=== PATIENT | male | born 2000 | race Two or more races ===

== ENCOUNTER 2024-01-18 13:28 | Emergency (ER) | payer OTHER ==
[~2024-01-18] VITALS: Ht 170.2 cm; Wt 74.8 kg
[2024-01-18 16:49] LABS: HEMATOCRIT 44.5 % (39.0-48.0); HEMOGLOBIN 15.4 g/dL (13-16.00); MEAN CELL VOLUME 87.4 fL (80.0-100.00); MEAN CORPUSCULAR HEMOGLOBIN 30.2 pg (27.00-32.0); MEAN CORPUSCULAR HGB CONC 34.6 g/dl (32.0-36.0); PLATELET COUNT 237 K/uL (150-450); RED BLOOD COUNT 5.09 M/uL (4.00-6.00); RED CELL DISTRIBUTION WIDTH 12.3 % (11.5-14.5)
[2024-01-18 17:29] LABS: ALBUMIN 4.1 gm/dL (3.4-5.0); BILIRUBIN TOTAL 0.94 mg/dL (0.3-1.2); CALCIUM 8.8 mg/dL (8.5-10.1); CREATININE SERUM 1.21 mg/dL (0.70-1.30); GFR 73.07; GLOBULINA 3.4 G/DL (2.4-3.5); POTASSIUM 4.69 mEq/L (3.5-5.1); TOTAL PROTEIN 7.5 gm/dL (6.4-8.2)
== END 2024-01-18 18:37 | disposition home or self-care (01) ==
LOC: ER 13:29
PROVIDERS: General Practice
DX: T18.198A Other foreign object in esophagus causing other injury, initial encounter (principal); R10.13 Epigastric pain; J00 Acute nasopharyngitis [common cold]; Z20.822 Contact with and (suspected) exposure to COVID-19